=== PATIENT | male | born 1960 | race Caucasian/White ===

== ENCOUNTER 2022-10-21 13:48 | Emergency (ER) | payer OTHER, SELFPAY ==
--- NOTE | ~2022-10-21 | XR_ITS ---
EXAMINATION: XR foot RT min 3V DATE: 10/21/2022 16:03 INDICATION: Blunt trauma to the right foot TECHNIQUE: Dorsoplantar, two oblique and lateral views of the right foot were obtained. COMPARISON: None. FINDINGS: Bone alignment is normal. No fracture. Mild osteoarthritis at the multiple tarsometatarsal, metatarso phalangeal and interphalangeal joints. Small plantar calcaneal spur. Soft tissues are unremarkable. IMPRESSION: 1. Mild polyarticular osteoarthritis in the mid and forefoot. No acute osseous abnormality. Reviewed, dictated and finalized at location A. K BIOLOGIST
[2022-10-21 14:39] VITALS: BP 130/78; PULSE 65; RESP 18; TEMP 36.5; O2SAT 99
--- NOTE | 2022-10-21 17:20 | ED.LOWEXIN ---
HPI - Extremity Injury (Lower) General Chief Complaint: Extremity Injury, Lower Stated Complaint: FOOT INJURY Time Seen by Provider: 10/21/22 17:13 Source: patient Mode of arrival: ambulatory Limitations: no limitations History of Present Illness HPI Narrative: Patient is a 61 y/o male who presents to the ED with c/o R foot pain. Patient reports he was carrying a large steel beam today when the beam dropped, bounced off the floor, and landed on his R distal foot. He states he had significant swelling initially after the incident which has since improved with ice and elevation. He has been able to ambulate, but has some pain with this. Denies any wounds, numbness/tingling. He has not taken anything for pain. Related Data Allergies Allergy/AdvReac Type Severity Reaction Status Date / Time No Known Allergies Allergy Unverified 02/02/18 10:00 Review of Systems Review of Systems: CONSTITUTIONAL: Denies fever, chills, or sweats. SKIN: Reports swelling to R foot. MUSCULOSKELETAL: Reports R foot pain. NEUROLOGIC: Denies tingling, numbness, or weakness. All systems reviewed & are unremarkable except as noted in HPI and below PMFSH Past Medical History Medical History No pertinent past medical history Surgical History Surgical History H/O hernia repair 2016 H/O total knee replacement 2011 Family History Family History (Updated 01/15/21 @ 12:53 by Ethel Barrera, [facility]) Sibling Cancer Father Heart disease Mother Cerebrovascular accident Social History Social History Smoking status: Never smoker Alcohol intake: current Exam Narrative: GENERAL: Well appearing, well-nourished, non-toxic, in no acute distress. HEAD: Normocephalic, atraumatic. NECK: Supple. No adenopathy, no masses. RESPIRATORY: Airway patent, respirations nonlabored. CARDIOVASCULAR: Regular rate and rhythm without murmurs, rubs, or gallops. Pedal pulses 2+ and equal bilaterally. MUSCULOSKELETAL: Moves all extremities. Strength/ROM intact without gross deformities. Contusion to R mid dorsal foot with tenderness along 2nd/3rd metatarsals, mild ecchymosis and swelling present. No wounds. No TTP throughout distal toes/R ankle. SKIN: Warm, dry, normal color. No rashes. NEURO: A&O X3. Speech clear. Cranial nerves II-XII grossly intact. Steady gait. No ataxic movements. PSYCHIATRIC: Appropriate mood and affect. Normal interaction. Course Vital Signs Vital signs: Vital Signs Temperature 97.7 F 10/21/22 14:39 Pulse Rate 65 10/21/22 14:39 Respiratory Rate 18 10/21/22 14:39 Blood Pressure 130/78 10/21/22 14:39 Pulse Oximetry 99 10/21/22 14:39 Oxygen Delivery Room Air 10/21/22 14:39 Temperature 97.8 F 10/21/22 17:55 Pulse Rate 78 10/21/22 17:55 Respiratory Rate 18 10/21/22 17:55 Blood Pressure 149/93 H 10/21/22 17:55 Pulse Oximetry 98 10/21/22 17:55 Oxygen Delivery Room Air 10/21/22 17:55 MDM - Extremity Injury (Lower) MDM Narrative Medical decision making narrative: Patient's injury is consistent with musculoskeletal etiology. No gross deformities. No signs of neurologic or vascular compromise on physical examination. Compartments are soft without signs of compartment syndrome. XR showing no acute osseous abnormality. Pain is consistent with exam and injury. Patient is felt to be stable for discharge home and further outpatient management and treatment. Given Ibuprofen in the ED, Naproxen sent to pharmacy. Given reasons to return. Medical Records Attestation: I reviewed the patient's medical records. Imaging Data Attestation: I personally reviewed and interpreted this imaging study as follows: Radiologist's impression: ITS Impressions Foot X-Ray 10/21/22 16:07 IMPRESSION: 1. Mild polyarticular osteoarthritis in the
[2022-10-21 17:55] VITALS: BP 149/93; PULSE 78; RESP 18; TEMP 36.6; O2SAT 98
[2022-10-21] MEDS: IBUPROFEN 600 MG TABLET PO (18:02)
== END 2022-10-21 18:34 | disposition home or self-care (01) ==
LOC: ANHED 18:32
PROVIDERS: Emergency Provider Physician Assistant; PCP Internal Medicine
DX: S90.31XA Contusion of right foot, initial encounter (principal); Z96.659 Presence of unspecified artificial knee joint; M19.071 Primary osteoarthritis, right ankle and foot; W20.8XXA Other cause of strike by thrown, projected or falling object, initial encounter
CPT/HCPCS: 73630; 99283; A9270; J1885

== ENCOUNTER 2023-12-01 12:06 | Outpatient (CLI) | payer OTHER, SELFPAY ==
--- NOTE | ~2023-12-01 | XR_ITS ---
XR knee RT 3V 12/01/2023 12:28 Indication: Right knee pain Procedure: 3 views right knee Comparison: No prior studies for comparison. Findings: Moderate osteoarthritis of the right knee. Chondrocalcinosis is present. Small joint effusi on. No fracture or traumatic malalignment. Impression: 1: Moderate tricompartment osteoarthritis with chondrocalcinosis. Reviewed, dictated and finalized at location B. OFF WORKER Impression: 1: Moderate tricompartment osteoarthritis with chondrocalcinosis.
== END 2023-12-01 12:07 ==
PROVIDERS: PCP Internal Medicine; Visit Provider Internal Medicine
DX: M17.11 Unilateral primary osteoarthritis, right knee (principal); M11.261 Other chondrocalcinosis, right knee
CPT/HCPCS: 73562